=== PATIENT | male | born 1940 | race Caucasian/White ===

== ENCOUNTER 2018-03-04 01:08 | Outpatient (CLI) | payer OTHER, SELFPAY ==
[2018-03-04 10:59] LABS: CREATININE 1.14 mg/dL (0.70-1.30)
[2018-03-04 11:02] LABS: Hemoglobin A1C 5.8 % (4.5-6.2)
== END 2018-03-04 01:28 ==
PROVIDERS: PCP Family Medicine; Visit Provider Family Medicine
DX: I10 Essential (primary) hypertension (principal); E74.39 Other disorders of intestinal carbohydrate absorption
CPT/HCPCS: 36415; 82565; 83036

== ENCOUNTER 2019-02-21 01:29 | Outpatient (CLI) | payer OTHER, SELFPAY ==
[2019-02-21 11:48] LABS: CREATININE 1.09 mg/dL (0.70-1.30); Glucose 122 mg/dL (70-100); Potassium 4.1 mmol/L (3.5-5.1)
== END 2019-02-21 01:49 ==
PROVIDERS: PCP Family Medicine; Visit Provider Family Medicine
DX: I10 Essential (primary) hypertension (principal); R73.9 Hyperglycemia, unspecified
CPT/HCPCS: 36415; 82947; 82565; 84132

== ENCOUNTER 2020-02-21 04:14 | Outpatient (CLI) | payer OTHER, SELFPAY ==
[2020-02-21 08:39] LABS: Hemoglobin A1C 5.7 % (<5.7)
[2020-02-21 09:18] LABS: CREATININE 1.01 mg/dL (0.70-1.30); Calculated LDL 105 mg/dL (<100); Cholesterol 178 mg/dL (<200); HDL Cholesterol 44 mg/dL (40-60); Potassium 4.1 mmol/L (3.5-5.1); Triglyceride 148 mg/dL (<150)
== END 2020-02-21 04:34 ==
PROVIDERS: PCP Family Medicine; Visit Provider Family Medicine
DX: E78.5 Hyperlipidemia, unspecified (principal); I10 Essential (primary) hypertension; R73.9 Hyperglycemia, unspecified
CPT/HCPCS: 36415; 80061; 82565; 83036; 84132

== ENCOUNTER 2021-04-28 02:11 | Outpatient (CLI) | payer MEDICARE, SELFPAY ==
[2021-04-28 11:44] LABS: Hemoglobin A1C 5.7 % (<5.7)
[2021-04-28 12:11] LABS: CREATININE 1.2 mg/dL (0.70-1.30); Estimated GFR 57.96 (mL/min/1.73m2); Potassium 4.1 mmol/L (3.5-5.1)
== END 2021-04-28 02:12 | disposition home or self-care (01) ==
LOC: LOS 02:11
PROVIDERS: PCP Family Medicine; Visit Provider Family Medicine
DX: I10 Essential (primary) hypertension (principal); R73.9 Hyperglycemia, unspecified
CPT/HCPCS: 36415; 82565; 83036; 84132

== ENCOUNTER 2021-12-02 11:13 | Outpatient (REF) | payer MEDICARE, SELFPAY ==
--- NOTE | 2021-12-02 14:55 | SKI_PTH ---
PATIENT: Frank Schulz LOC: [facility] U#:[id number] AGE/SX: 81/M ROOM: RE12/02/[address]: Kb Greene MD : 1940 BED: DIS: 12/02/2021 SPEC #: [id number] RECD: 12/03/21 12:35 STATUS: FIFI REQ #: [id number] SAEID: 12/02/21 14:[address]: Kb Greene DEPT: Surgical Specimen RECD BY: Yoko Olivares Tissues: 1 - SKIN BIOPSY(SHAVE/PUNCH) Procedures: SKIN LEVEL 4 Comments: [id number]
== END 2021-12-02 11:14 | disposition home or self-care (01) ==
LOC: LBN 11:13
PROVIDERS: PCP Family Medicine; Visit Provider Family Medicine
DX: D04.21 Carcinoma in situ of skin of right ear and external auricular canal (principal)
CPT/HCPCS: 88305

== ENCOUNTER 2022-05-20 03:11 | Outpatient (CLI) | payer MEDICARE, SELFPAY ==
[2022-05-20 12:43] LABS: CREATININE 1.3 mg/dL (0.70-1.30); Estimated GFR 54.51 (mL/min/1.73m2); Potassium 3.9 mmol/L (3.5-5.1)
== END 2022-05-20 03:12 | disposition home or self-care (01) ==
LOC: LOS 03:11
PROVIDERS: PCP Family Medicine; Visit Provider Family Medicine
DX: I10 Essential (primary) hypertension (principal)
CPT/HCPCS: 36415; 82565; 84132

== ENCOUNTER 2023-01-25 20:20 | Emergency (ER) | payer MEDICARE, SELFPAY ==
[2023-01-25 20:27] VITALS: BP 159/73; PULSE 97; RESP 20; TEMP 36.4; O2SAT 95
--- NOTE | 2023-01-25 20:30 | DI.CT_ITS ---
Exam(s) CT ABDOMEN PELVIS W EXAM: CT ABDOMEN PELVIS W CLINICAL HISTORY: hematuria,. TECHNIQUE: Imaging Protocol: Axial computed tomography images with coronal and sagittal reformatted images were created and reviewed CONTRAST MATERIAL: Intravenous: Omnipaque-350 100cc Oral: None COMPARISON: No exams were available for comparison FINDINGS: VISUALIZED LUNG BASES: No nodules nor pleural effusions evident. ABDOMEN: There is no ascites. LIVER: There are no focal hepatic lesions evident. No dilated intrahepatic ducts. GALLBLADDER/BILIARY: Gallbladder surgically absent. CBD is not dilated. PANCREAS: No evidence of pancreatic mass nor dilatation of the pancreatic duct. SPLEEN: Spleen is not enlarged. No obvious intrasplenic lesions. Splenic and portal veins are paten t. ADRENALS: There are no significant adrenal masses. KIDNEYS:There is a benign cyst in the inferior pole of the right kidney which measures 2 x 2 cm and d oes not require further imaging investigation. No solid renal masses. No calculi nor hydronephrosis .. ABDOMINAL AORTA: Abdominal aorta is not enlarged. LYMPH NODES:There is no retroperitoneal nor paraaortic adenopathy. ABDOMINAL WALL: No evidence of anterior abdominal hernia. GI: There is no evidence of bowel obstruction, free air, nor abscess. PELVIS: GI: No evidence of appendicitis.Sigmoid diverticulosis without evidence of obvious acute diverticulit is. LYMPH NODES: There is no intrapelvic nor inguinal adenopathy. REPRODUCTIVE: Prostate size upper normal for this age group. Seminal vesicles unremarkable. There i s the small 2 millimeter calcification in the mid posterior prostate which may be a calculus within t he prostatic urethra. URINARY BLADDER: There are no radiopaque calculi seen in the urinary bladder. A small bladder divert iculum is noted posteriorly, not containing calculi. OSSEOUS: No fractures and no significant osseous lesions. Multilevel chronic degenerative disc disease. No listhesis. IMPRESSION: 1. There is a small 2 mm calculus present in the prostate which may be a tiny calculus in the prostat ic urethra and may explain the hematuria. There are no calculi in the kidneys, ureters, nor within t he urinary bladder and there are no solid renal masses. There is a benign 2 cm cyst in the inferior pole of the right kidney. 2. There is a small diverticulum on the posterior wall the urinary bladder which measures 1.4 x 1.5 c m. This does not contain obvious mass nor radiopaque calculus. 3. Sigmoid diverticulosis. No obvious acute diverticulitis. 4. Gallbladder surgically absent. Biliary tree is not dilated. RADIATION DOSE DELIVERED: 1,073.41mGy.cm Total DLP DATA REPOSITORY: All CT scans at this facility are submitted to the National Radiology Data Registry (NRDR) Dose Index Registry (DIR) with the [employer] (ACR). RADIATION OPTIMIZATION: All CT scans at this facility use at least one of these dose optimization te chniques: automated exposure control; mA and/or kV adjustment per patient size (includes targeted exa ms where dose is matched to clinical indication); or iterative reconstruction.
--- NOTE | 2023-01-25 20:40 | W.ED.GENAD ---
Discharge Plan Disposition Patient Disposition: Home Condition: Stable Discharge Details Clinical Impression: Hematuria, Kidney stone Primary Care Provider: Kb Greene ED Provider: Denis Hillman [place] Meds and New Rx's Prescriptions: Continued pravastatin 40 mg tablet 40 mg PO QHS Qty: 90 3RF telmisartan-hydrochlorothiazid 80-12.5 mg tablet 1 tab PO DAILY Qty: 90 3RF ibuprofen 200 mg capsule 400 mg PO BID Rx Instructions: 400 mg AM - 200 mg PM multivitamin [Once Daily] 1 EACH tablet 1 ea PO DAILY glucosamine sulfate 500 MG capsule 2 cap PO DAILY calcium carbonate [Oyster Shell Calcium 500] 500 mg calcium (1,250 mg) tablet 600 mg PO DAILY Discharge Instructions Instructions: Kidney Stones (ED), Hematuria (ED) HPI General Date/Time Provider Initiated Documentation: 01/25/23 20:23. HPI Narrative: 82 year old male presents to the ED with c/o episode of hematuria after mowing the lawn, with some mild flank pain tonight. No fever/chills. No trauma. No abd pain. No n/v/d. Currently without any sx's. Related Data Home Medications Medication Instructions Recorded Confirmed glucosamine sulfate 500 mg capsule 2 cap PO DAILY 11/03/12 01/25/23 multivitamin (Once Daily tablet) 1 ea PO DAILY 11/03/12 01/25/23 calcium carbonate 500 mg calcium 600 mg PO DAILY 02/28/19 01/25/23 (1,250 mg) tablet (Oyster Shell Calcium 500) pravastatin 40 mg tablet 40 mg PO QHS #90 tab-caps 05/12/22 01/25/23 telmisartan 80 1 tab PO DAILY #90 tabs 05/12/22 01/25/23 mg-hydrochlorothiazide 12.5 mg tablet ibuprofen 200 mg capsule 400 mg PO BID 11/17/22 01/25/23 Previous Rx's Medication Instructions Recorded pravastatin 40 mg tablet 40 mg PO QHS #90 tab-caps 05/12/22 telmisartan 80 1 tab PO DAILY #90 tabs 05/12/22 mg-hydrochlorothiazide 12.5 mg tablet Allergies Allergy/AdvReac Type Severity Reaction Status Date / Time lisinopril AdvReac Unknown COUGH Verified 01/25/23 20:32 General Stated Complaint: Urinary BEAU: 3 Review of Systems Narrative: CONST: no fever or chills HEENT: no sore throat SKIN: no rashes PULM: no sob, no cough CARD: no cp, no palpitations ABD: no abd pain EXTR: no swelling NEURO: No focal weakness PFSH All Active Problems (Updated 01/25/23 @ 22:27 by Denis Hillman MD) Hematuria (Acute) Kidney stone (Chronic) Difficulty in walking (Acute) Other specified peripheral vascular diseases (Acute) Toe pain, right (Acute) Toe pain, left (Acute) Pain, foot (Acute) Localized edema (Acute) Nail dystrophy (Acute) Cutaneous horn (Acute) Eczema (Acute) Basal cell carcinoma of nose (Acute 05/09/12) Cholelithiasis (Acute 02/27/08) History of surgical removal of lesion (Acute) 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) Status post cholecystectomy (Acute) Status post inguinal hernia repair (Acute) Hypertension (Chronic) Tendinitis involving hip abductors (Acute 05/18/16) Rhinitis (Acute) Varicose veins of lower extremity (Acute) Proteinuria (Acute 11/07/12) yearly prot/creat ratio Polyp of colon (Acute 05/06/05) TUBULAR ADENOMAS 06/12-REPEAT 2008 1 adenoma rpt 201310/27/13; [facility] [place] 3 TUBULAR ADENOMAS Onychomycosis (Acute 11/11/12) Non-alcoholic fatty liver disease (Acute) on [place] 2006 LFTs normal 2011,2012 Increased BMI (Acute) Hyperlipidemia with target LDL less than 100 (Acute 05/20/12) Essential hypertension (Acute 05/15/13) Actinic keratoses (Acute 11/23/13) Surgical History Cholecystectomy (~2006) Repair of inguinal hernia LEFT Family History Mother , age 60.5 Essential hypertension Heart disease Hyperlipidemia Myocardial infarction Throat cancer Father , age 62.5 Essential hypertension Heart disease Hyperlipidemia Sister , age 63 COPD (chronic obstructive pulmonary disease) Sister Heart disease Sister COPD (chronic obstructive pulmonary disease) Sister Cancer Sister No problems noted. Brother , DROWN at age 29. Essential hypertension Hyperlipidemia Brother , age 72.5 Heart disease Cancer Brother No problems noted. Brother Heart disease Brother Heart disease Brother No problems noted. Maternal Grandfather , age 60 Throat cancer Paternal Grandfather , age 62 Stroke Cancer Maternal Grandmother , age 60 Stroke Paternal Grandmother No problems noted. Son Essential hypertension Heart disease Son No problems noted. Son No problems noted. Daughter , age 35 Substance abuse Daughter No problems noted. Daughter No problems noted. Social History (Updated 05/15/22 @ 18:25 by Deonna [place]) Smoking/Tobacco Use Status: Never Tobacco: How many years used: 5 Second Hand Exposure: No Smoking risk assessment performed?: Yes Alcohol Intake: former Drug use: Never Substance use type: does not use Household members: spouse Communication Needs: None Pets and animals: No Sexually active: No Do you think of yourself as: straight/heterosexual Current gender identity: male What is your relationship status?: How often do you talk on the phone with friends or family?: three or more times per week How often do you get together with friends or relatives?: three or more times per week How often do you attend hindu or yazdanism services?: decline to answer Do you belong to any clubs or organized social groups?: no Panel score (0-1 are the most socially isolated patients): 2 What type of physical activity do you participate in: walking and aerobic Duration: > 90 minutes/day Frequency: daily Mojgan/Yazidism: Anabaptist Special mojgan needs: No Seatbelt use: always Drive intox or ride w/intox special client bus driver: No Exam Narrative Exam Narrative: Const: well appearing, no acute distress HEENT: normocephalic, atraumatic; MMM Lungs: CTA, no wheezing or rales Heart: RRR Abd: soft, NT/ND Ext: well perfused Neuro: non-focal Skin: no rashes Course 82 yo male with gross hematuria, normal labs. UA with blood only. CT a/p showed ?small stone at level of urethra, otherwise pretty normal. Will dc home, encourage fluids, OTC meds for any discomfort and f/u with pcp. If worsening pain, difficulty or inability to urinate, or any other cocerns return to the ED. Vital Signs Vital signs: Vital Signs Temperature 36.4 C L 01/25/23 20:27 Pulse 97 H 01/25/23 20:27 Respiratory Rate 20 01/25/23 20:27 Blood Pressure 159/73 H 01/25/23 20:27 Pulse Oximetry 95 01/25/23 20:27 Temperature 36.4 C L 01/25/23 20:27 Pulse 97 H 01/25/23 20:27 Respiratory Rate 20 01/25/23 20:27 Respiratory Effort Normal 01/25/23 20:34 Blood Pressure 159/73 H 01/25/23 20:27 Blood Pressure Position Sitting 01/25/23 20:27 Pulse Oximetry 95 01/25/23 20:27 Oxygen Delivery Method Room Air 01/25/23 20:27 Oxygen Flow Rate 0 01/25/23 20:27 Pain Level 0 01/25/23 20:34
[2023-01-25] MEDS: Normal Saline 1,000 ML 1000 ML IV (20:45)
[2023-01-25 20:46] LABS: Abs Immature Grans 0.03 10^3/uL (0.0-0.06); Absolute Basophil Count 0.08 10^3/uL (0.0-0.2); Absolute Eosinophil Count 0.28 10^3/uL (0.0-0.7); Absolute Lymphocyte Count 1.59 10^3/uL (1.2-3.4); Absolute Monocyte Count 1.07 10^3/uL (0.1-0.8); Absolute Neutrophil Count 4.95 10^3/uL (1.2-6.7); Eosinophils % 3.5; HCT 43.9 % (40.0-50.0); HGB 15.2 g/dL (13.5-17.5); Immature Grans % 0.4; Lymphocytes % 19.9; MCH 32.3 pg (27.0-33.0); MCHC 34.6 % (32.0-36.0); MCV 93 fL (80-95); MPV 10.1 fL (8.0-11.0); Monocytes % 13.4; Neutrophils % 61.8; Platelet Count 174 10^3/uL (130-400); RBC 4.71 10^6/uL (4.36-5.78); RDW 12.3 % (11.8-14.1); RDW-SD 42.9 fL
[2023-01-25 21:01] LABS: ALT 41 U/L (16-63); AST 24 U/L (15-37); Albumin 3.7 g/dL (3.4-5.0); Alkaline Phosphatase 68 U/L (46-116); Anion Gap 8.5 mmol/L (3-11); BUN 24 mg/dL (7-18); Bilirubin, Total 0.6 mg/dL (0.2-1.0); CO2 27.5 mmol/L (21.0-32.0); CREATININE 1.3 mg/dL (0.70-1.30); Chloride 104 mmol/L (98-107); Estimated GFR 54.51 (mL/min/1.73m2); Glucose 129 mg/dL (74-106); Potassium 3.8 mmol/L (3.5-5.1); Sodium 140 mmol/L (136-145); Total Protein 7.1 g/dL (6.4-8.2)
[2023-01-25] MEDS: Normal Saline Flush 10 ML SYR IVP (21:14)
[2023-01-25] MEDS: Normal Saline - Diluent 50 ML VIAL IJ (21:15)
[2023-01-25] MEDS: Omnipaque 350 MG/ML 100 ML BTL IJ (21:15)
[2023-01-25 21:51] LABS: Bilirubin Negative (Negative); Blood Large (Negative); Clarity Turbid (Clear); Glucose Negative (Negative); Ketones Negative (Negative); Leukocyte Esterase Negative (Negative); Nitrite Negative (Negative); Specific Gravity 1.015 (1.005-1.025); Urobilinogen 0.2 mg/dL (Up to 0.2)
--- NOTE | 2023-01-25 21:55 | DI.VRAD_ITS ---
PROCEDURE INFORMATION: Exam: CT Abdomen And Pelvis With Contrast Exam date and time: 01/25/2023 9:15 PM Age: 82 years old Clinical indication: Other: Hematuria TECHNIQUE: Imaging protocol: Computed tomography of the abdomen and pelvis with contrast. Radiation optimization: All CT scans at this facility use at least one of these dose optimization techniques: automated exposure control; mA and/or kV adjustment per patient size (includes targeted exams where dose is matched to clinical indication); or iterative reconstruction. Contrast material: OMNI 350; Contrast volume: 100 ml; Contrast route: INTRAVENOUS (IV); COMPARISON: CR LEFT HIP COMPLETE AP PELVIS 04/07/2016 11:11 AM FINDINGS: Lungs: There is minimal bibasilar atelectasis. Pleural spaces: There is no evidence of pneumothorax. There are no pleural effusions present. Heart: There is calcification of the cardiac aortic valve annulus. The cardiac structures are normal. Coronary arteries: There is mild atherosclerotic calcification of the coronary arteries. Diaphragm: A small hiatal hernia is present. Liver: There is a diffuse decrease in hepatic parenchymal density, consistent with mild fatty infiltration. There are no focal liver lesions present. Gallbladder and bile ducts: There has been a cholecystectomy. Pancreas: There is moderate pancreatic atrophy and fatty replacement. Spleen: The spleen is normal. Adrenal glands: Normal. No mass. Kidneys and ureters: 2 cm simple appearing cyst inferior pole right kidney. No follow-up indicated. No definitive ureteral calculi identified. Kidneys are otherwise normal. Stomach and bowel: There is moderate increased colonic fecal content. The colon is mildly distended. These findings suggest a moderate degree of constipation. Clinical correlation recommended. Mild diverticulosis is present in the sigmoid and descending colon. There is no evidence of diverticulitis. There is no evidence of intestinal obstruction. Appendix: A normal appendix is identified. There is no evidence of distention or periappendiceal inflammation to suggest appendicitis. Intraperitoneal space: There is no free intraperitoneal air. There is no evidence of free intraperitoneal or pelvic fluid. Vasculature: Unremarkable. No abdominal aortic aneurysm. Lymph nodes: There is no evidence of lymphadenopathy. Urinary bladder: The bladder is normal. Reproductive: The prostate gland demonstrates calcification and mild nonspecific enlargement. The seminal vesicles are normal. There is a 1-2 mm diameter calculus present at the mid posterior prostate which may represent a tiny urethral calculus in the process of being passed. Bones/joints: Severe degenerative changes of the lumbosacral spine present. The thoracolumbar spine demonstrates severe the degenerative changes at multiple levels. Soft tissues: There are nonobstructing bilateral inguinal hernias containing fat and possibly a small amount of mesentery. There is mild whole body soft tissue edema present, consistent with mild anasarca. IMPRESSION: 1. There is a 1-2 mm diameter calculus present at the mid posterior prostate which may represent a tiny urethral calculus in the process of being passed. 2. Constipation. 3. Degenerative changes the lumbosacral and thoracolumbar spine. Dictated and Authenticated by: Jay Jay Lazaro MD. Ordering:JANAE Barrios MD
[2023-01-25 21:56] LABS: Bacteria Rare HPF (Negative); C & S Indicated? No; Casts Negative LPF (Negative); Crystals Negative HPF (Negative); Epithelial Cells Rare HPF (Negative); Mucus Negative (Negative); RBC >50 HPF (0-2); WBC 0-2 HPF (0-5)
[2023-01-25 22:02] VITALS: BP 144/74; PULSE 80; RESP 14; O2SAT 94
[2023-01-25 22:55] VITALS: BP 140/72; PULSE 80; RESP 14; O2SAT 95
== END 2023-01-25 22:58 | disposition home or self-care (01) ==
PROVIDERS: Emergency Provider Emergency Medicine; PCP Family Medicine
DX: R31.9 Hematuria, unspecified (principal); N21.1 Calculus in urethra; K57.30 Diverticulosis of large intestine without perforation or abscess without bleeding
CPT/HCPCS: 36415; 80053; 96360; 99285; 74177; 81003; 81015; 85025; 99284; J3490

== ENCOUNTER → 2023-01-28 09:50 | Outpatient (BNVA) | payer MEDICARE, SELFPAY | PROVIDERS: PCP Family Medicine; Referring Provider Family Medicine; Visit Provider Urology | DX: R31.9 Hematuria, unspecified (principal); R30.9 Painful micturition, unspecified; I10 Essential (primary) hypertension | CPT/HCPCS: 99215 ==

== ENCOUNTER → 2023-02-09 12:49 | Outpatient (BNVA) | payer MEDICARE, SELFPAY | PROVIDERS: PCP Family Medicine; Referring Provider Family Medicine; Visit Provider Urology | DX: N35.912 Unspecified bulbous urethral stricture, male (principal); N35.919 Unspecified urethral stricture, male, unspecified site | CPT/HCPCS: 52000 ==

== ENCOUNTER → 2024-05-10 08:18 | Outpatient (BNVA) | payer MEDICARE, SELFPAY | PROVIDERS: PCP Family Medicine; Referring Provider Family Medicine; Visit Provider Podiatrist | DX: L60.3 Nail dystrophy (principal); R60.0 Localized edema; I83.90 Asymptomatic varicose veins of unspecified lower extremity; I73.89 Other specified peripheral vascular diseases; B35.1 Tinea unguium; G62.9 Polyneuropathy, unspecified | CPT/HCPCS: 11721 ==

== ENCOUNTER 2024-07-04 11:01 | Outpatient (CLI) | payer MEDICARE, SELFPAY ==
[2024-07-04 12:27] LABS: CREATININE 1.7 mg/dL (0.70-1.30); Estimated GFR 39.02 (mL/min/1.73m2); Potassium 4.3 mmol/L (3.5-5.1)
[2024-07-04 16:48] LABS: Lab Add On Test DONE
[2024-07-04 17:02] LABS: BUN 43 mg/dL (7-18)
== END 2024-07-04 11:02 | disposition home or self-care (01) ==
LOC: LOS 11:01
PROVIDERS: PCP Family Medicine; Visit Provider Family Medicine
DX: I10 Essential (primary) hypertension (principal); M25.561 Pain in right knee; R63.8 Other symptoms and signs concerning food and fluid intake
CPT/HCPCS: 36415; 84520; 82565; 84132

== ENCOUNTER 2024-07-06 03:01 | Outpatient (CLI) | payer MEDICARE, SELFPAY ==
--- NOTE | 2024-07-06 13:37 | DI.RAD_ITS ---
Exam(s) XR KNEE RT 3V AP,LAT,ANTON EXAM: XR KNEE RT 3V AP,LAT,ANTON CLINICAL HISTORY: progressive rt knee pain,m25.561. TECHNIQUE: 2D digital imaging was performed of the right knee. Four views obtained. AP, lateral and PA tunnel views were obtained. COMPARISON: CR RIGHT KNEE COMPLETE from 10/17/2008 FINDINGS: BONES: No acute fracture is present. No bony destructive lesion is seen. JOINTS: There is marked narrowing of the lateral femoral tibial joint with [id number]. There osteo phytes involving all 3 joint compartments. There does appear to be a small joint effusion. SOFT TISSUE: Atherosclerotic calcifications are present. IMPRESSION: Marked osteoarthritis of the right knee. There has been significant progression of disease compared to the prior examination. DATA REPOSITORY: RADIATION DOSE DELIVERED:
== END 2024-07-06 03:21 ==
LOC: DI 03:01
PROVIDERS: PCP Family Medicine; Visit Provider Family Medicine
DX: M17.11 Unilateral primary osteoarthritis, right knee (principal)
CPT/HCPCS: 73562

== ENCOUNTER → 2024-07-24 09:20 | Outpatient (BNVA) | payer MEDICARE, SELFPAY | PROVIDERS: PCP Family Medicine; Referring Provider Family Medicine; Visit Provider Podiatrist | DX: L60.3 Nail dystrophy (principal); I83.93 Asymptomatic varicose veins of bilateral lower extremities; R60.0 Localized edema; I73.89 Other specified peripheral vascular diseases; B35.1 Tinea unguium; G62.9 Polyneuropathy, unspecified; L65.9 Nonscarring hair loss, unspecified; R20.8 Other disturbances of skin sensation; R23.8 Other skin changes; L60.8 Other nail disorders; L60.2 Onychogryphosis; L85.8 Other specified epidermal thickening | CPT/HCPCS: 11721 ==

== ENCOUNTER → 2024-08-11 10:16 | Outpatient (BNVA) | payer MEDICARE, SELFPAY | PROVIDERS: PCP Family Medicine; Referring Provider Family Medicine; Visit Provider Physician Assistant | DX: M17.11 Unilateral primary osteoarthritis, right knee (principal); I10 Essential (primary) hypertension; G47.33 Obstructive sleep apnea (adult) (pediatric) | CPT/HCPCS: 20610; 99213; J1010 ==

== ENCOUNTER → 2024-10-02 10:23 | Outpatient (BNVA) | payer MEDICARE, SELFPAY | PROVIDERS: PCP Family Medicine; Referring Provider Family Medicine; Visit Provider Podiatrist | DX: L60.3 Nail dystrophy (principal); B35.1 Tinea unguium; I73.89 Other specified peripheral vascular diseases; R60.0 Localized edema; I83.90 Asymptomatic varicose veins of unspecified lower extremity; G62.9 Polyneuropathy, unspecified; R09.89 Other specified symptoms and signs involving the circulatory and respiratory systems; L65.9 Nonscarring hair loss, unspecified; R20.8 Other disturbances of skin sensation; R23.8 Other skin changes; L60.8 Other nail disorders; L60.2 Onychogryphosis; L85.8 Other specified epidermal thickening | CPT/HCPCS: 11721 ==

== ENCOUNTER → 2024-12-11 10:50 | Outpatient (BNVA) | payer MEDICARE, SELFPAY | PROVIDERS: PCP Family Medicine; Referring Provider Family Medicine; Visit Provider Podiatrist | DX: I83.93 Asymptomatic varicose veins of bilateral lower extremities (principal); L60.3 Nail dystrophy; R60.0 Localized edema; I73.89 Other specified peripheral vascular diseases; B35.1 Tinea unguium; G62.9 Polyneuropathy, unspecified; R09.89 Other specified symptoms and signs involving the circulatory and respiratory systems; L65.9 Nonscarring hair loss, unspecified; R20.8 Other disturbances of skin sensation; R23.8 Other skin changes; L60.8 Other nail disorders; B35.3 Tinea pedis; L60.2 Onychogryphosis; L85.8 Other specified epidermal thickening | CPT/HCPCS: 11721 ==

== ENCOUNTER → 2025-02-20 10:21 | Outpatient (BNVA) | payer MEDICARE, SELFPAY | PROVIDERS: PCP Family Medicine; Referring Provider Family Medicine; Visit Provider Podiatrist | DX: L60.3 Nail dystrophy (principal); B35.1 Tinea unguium; I73.89 Other specified peripheral vascular diseases; I83.90 Asymptomatic varicose veins of unspecified lower extremity; R60.0 Localized edema; G62.9 Polyneuropathy, unspecified; R09.89 Other specified symptoms and signs involving the circulatory and respiratory systems; L65.9 Nonscarring hair loss, unspecified; R20.8 Other disturbances of skin sensation; R23.4 Changes in skin texture; L60.8 Other nail disorders; I83.93 Asymptomatic varicose veins of bilateral lower extremities; L60.2 Onychogryphosis; R23.8 Other skin changes; L85.8 Other specified epidermal thickening | CPT/HCPCS: 11721 ==

== ENCOUNTER 2025-03-16 09:02 | Day surgery (SDC) | payer MEDICARE, SELFPAY ==
--- NOTE | 2025-03-16 09:14 | W.ANESPRE ---
General Info Date of Service Date Performed: 03/16/25 Height: 5 ft 9 in Weight: 99.507 kg Body Mass Index (BMI): 32.3 Surgical Procedure: Operation Date: 03/16/25 10:40 Proposed Procedure Side Surgeon p Cataract Extraction with IOL Implant Left Jhon Olivera MD Meds Allergies and Home Medications Allergies Allergy/AdvReac Type Severity Reaction Status Date / Time lisinopril AdvReac Unknown COUGH Verified 03/16/25 09:22 Home Medication ?Medication ?Instructions ?Recorded glucosamine sulfate 500 mg capsule 2 cap PO DAILY 11/03/12 multivitamin (Once Daily tablet) 1 ea PO DAILY 11/03/12 calcium carbonate (Oyster Shell 600 mg PO DAILY 02/28/19 Calcium 500) ibuprofen 200 mg capsule 400 mg PO BID 11/17/22 ketoconazole 2 % topical cream 1 applic topical DAILY #60 grams 05/10/24 Held on 03/14/25. Instructions: Prescription Finished fluorouracil 5 % topical cream applic topical 07/04/24 Held on 03/14/25. Instructions: Pt Stopped/Never Started amlodipine 5 mg tablet 5 mg PO DAILY #90 tabs 03/08/25 pravastatin 40 mg tablet 40 mg PO QHS #90 tab-caps 03/08/25 telmisartan 80 1 tab PO DAILY #90 tabs 03/08/25 mg-hydrochlorothiazide 12.5 mg tablet Current Visit Medications: Current Medications Generic Name Dose Route Start Last Admin Trade Name Freq PRN Reason Stop Dose Admin Acetaminophen 1,000 mg 03/16/25 06:00 Acetaminophen 500 Mg Tab PO 04/15/25 05:59 Q4H PRN PRN Balanced Salt Solution 500 ml 03/16/25 06:00 Balanced Salt Soln.-Plus 500 Ml Bag OP 04/15/25 05:59 DIRECTED LASHAWN Miscellaneous Medication 0 ml 03/16/25 06:00 Prednisolone 1%, Moxifloxacin 0.5%, Bromfenac 0.09% 5.6ml Btl OS 04/15/25 05:59 DIRECTED LASHAWN Miscellaneous Medication 0 ml 03/16/25 06:00 Tropicam./Phenyleph. (1/2.5%) 5 Ml Btl OS 04/15/25 05:59 DIRECTED LASHAWN Tetracaine HCl 0 ml 03/16/25 06:00 Tetracaine 0.5% 4 Ml Btl OS 04/15/25 05:59 DIRECTED LASHAWN [facility] Active Problems Active Problems: Problem Status Onset Code Cortical age-related cataract, left eye Acute H25.012 Nuclear age-related cataract, left eye Acute H25.12 Systolic murmur Acute R01.1 Arthritis of right knee Acute M17.11 Pain, joint, knee, right Acute M25.561 Hyperglycemia Acute R73.9 Peripheral neuropathy Acute G62.9 Bilateral sensorineural hearing loss Acute H90.3 Sleep apnea Acute G47.30 Urethral stricture Acute N35.919 Difficulty in walking Acute R26.2 Other specified peripheral vascular diseases Acute I73.89 Toe pain, right Acute M79.674 Toe pain, left Acute M79.675 Pain, foot Acute M79.673 Localized edema Acute R60.0 Nail dystrophy Acute L60.3 Cutaneous horn Acute L85.8 Eczema Acute L30.9 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 C44.311 Cholelithiasis Acute 08 K80.20 History of surgical removal of lesion Acute Z98.890, Z87.2 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 Status post cholecystectomy Acute Z90.49 Status post inguinal hernia repair Acute Z98.890, Z87.19 Hypertension Chronic I10 Tendinitis involving hip abductors Acute 05/18/16 M76.899 Rhinitis Acute J31.0 Varicose veins of lower extremity Acute I83.90 Proteinuria Acute 11/07/12 R80.9 Polyp of colon Acute 05/06/05 K63.5 Onychomycosis Acute 11/11/12 B35.1 Non-alcoholic fatty liver disease Acute K76.0 Increased BMI Acute R63.8 Hyperlipidemia with target LDL less than 100 Acute 05/20/12 E78.5 Essential hypertension Acute 05/15/13 I10 Actinic keratoses Acute 11/23/13 L57.0 Surgical History Surgical History History of external ear surgery Excision of skin cancer right ear. History of tonsillectomy Repair of inguinal hernia LEFT Cholecystectomy (~2006) Tobacco Smoking/Tobacco Use Status: Former Tobacco Use Passive smoking exposure: Yes Second hand exposure: Yes Alcohol Alcohol Intake: former Substance Use Substance use: Never Substance use type: does not use Vital Signs and Lab Results Vital Signs Most Recent Vital Signs in EMR: Temp Pulse Resp BP Pulse Ox 36.3 C L 84 16 142/82 H 95 03/16/25 09:24 03/16/25 09:24 03/16/25 09:24 03/16/25 09:24 03/16/25 09:24 Imaging and Studies Imaging and Studies Study information below may be from another EMR and interpreted by another provider. Please see original notes in EMR for more complete details. EKG Summary: Reviewed Anesthesia Assessment and Plan Anesthesia History Personal History: No History of Anesthesia Complications Family History: No Family History of Anesthesia Complications Exercise Tolerance Exercise Tolerance: Metabolic Equivalents>4 Pertinent Negatives Pertinent Negatives: No Symptoms of GERD and No History of CVA/TIA Cardiac & Pulmonary Exam Cardiac Exam: Heart Murmur Present (Identified in October of this year by PCP, new to patient. No ECHO performed. ) Pulmonary Exam: Clear Bilateral Breath Sounds Implantable Cardiac Device Does patient have a Pacemaker or an ICD?: No Airway Exam Known Difficult Airway: No Mallampati Class: 2 Mouth Opening: Normal (> 3cm) Thyromental Distance: Greater than 3 cm Neck Range of Motion: Full ROM Neck Circumference: Normal Teeth Condition: Normal Dentition ASA Classification ASA Score: ASA 3 Emergency Case?: No NPO Status NPO Status: NPO Clears >2 hours, Solids >8 hours Anesthesia Plan Resuscitation Status: Full Code Anesthesia Technique: MAC Anesthesia Airway Planned: Natural Airway Monitors Used: Standard Monitors Preoperative Comments:: Patient with new systolic murmur identified in October of this year. No ECHO performed, uncertain on severity or etiology of murmur. Patient can proceed with a local today, however if he wants elective surgery with sedation we will need a more complete workup.
[2025-03-16] MEDS: Tropicam./Phenyleph. (1/2.5%) 5 ML BTL ×2 (09:21→09:31)
[2025-03-16 09:24] VITALS: BP 142/82; PULSE 84; RESP 16; TEMP 36.3; O2SAT 95
[2025-03-16] MEDS: Tropicam./Phenyleph. (1/2.5%) 5 ML BTL OS (09:38)
[2025-03-16 09:55] VITALS: BMI 32.3
[2025-03-16] MEDS: Prednisolone 1%, Moxifloxacin 0.5%, Bromfenac 0.09% 5.6ML BTL 5.6 ML (10:36)
[2025-03-16] MEDS: Lidocaine 1% Pres-Free 5 ML VIAL (10:38)
[2025-03-16] MEDS: Tetracaine 0.5% 4 ML BTL (10:38)
[2025-03-16] MEDS: Duovisc Viscoelastic System EACH 1 EACH (10:38)
[2025-03-16] MEDS: Phenylephrine/Lidocaine (15/10) MG/ML 1 ML VIAL (10:39)
[2025-03-16] MEDS: Moxifloxacin-PF 1 MG/ML VIAL (10:39)
[2025-03-16] MEDS: Povidone-Iodine Ophth 30 ML BTL (10:40)
[2025-03-16] MEDS: Balanced Salt Soln.-PLUS 500 ML BAG OP (10:40)
[2025-03-16] MEDS: Trypan Blue 0.06% 0.5 ML SYR (10:40)
[2025-03-16 10:56] VITALS: BP 145/73; PULSE 69; RESP 16; TEMP 36.4; O2SAT 96
--- NOTE | 2025-03-16 10:57 | W.PM.DSUDISC ---
Date of service: 03/16/25 Discharge Plan Disposition Patient Disposition: Home Discharge Details Attending Provider: Jhon Olivera Primary Care Provider: Kb Greene Home Meds and New Rx's Prescriptions: No Action ibuprofen 200 mg capsule 400 mg PO BID Rx Instructions: 400 mg AM - 200 mg PM ketoconazole 2 % cream 1 applic topical DAILY Qty: 60 5RF Rx Instructions: Apply 3 grams to all toenails, bottoms of feet, and between toes daily. (apply at a separate time from other creams). pravastatin 40 mg tablet 40 mg PO QHS Qty: 90 3RF telmisartan-hydrochlorothiazid 80-12.5 mg tablet 1 tab PO DAILY Qty: 90 3RF amlodipine 5 mg tablet 5 mg PO DAILY Qty: 90 3RF fluorouracil 5 % cream topical multivitamin [Once Daily] 1 EACH tablet 1 ea PO DAILY glucosamine sulfate 500 MG capsule 2 cap PO DAILY calcium carbonate [Oyster Shell Calcium 500] 500 mg calcium (1,250 mg) tablet 600 mg PO DAILY Discharge Instructions Stand Alone Forms: [facility] Post-Op Cataract, Guero Yo ([facility]) Discharge Orders Discharge Orders: Discharge Order (Routine); Ordered 03/16/25 Ordered By: Jhon Olivera DS: Diagnosis Discharge Diagnosis (1) Cortical age-related cataract, left eye: Status: Resolved (2) Nuclear age-related cataract, left eye: Status: Resolved
--- NOTE | 2025-03-16 10:58 | ROE_ITS ---
Operative Note Operative Note PRE-OP DIAGNOSIS: Nuclear/cortical cataract, left eye POST-OP DIAGNOSIS: same PROCEDURE: Cataract extraction using phacoemulsification with intraocular lens implant, left eye SURGEON: Jhon Olivera ANESTHESIA TYPE: Local By Surgeon and MAC Refer to Anesthesia Record PATHOLOGY: none sent COMPLICATIONS: None Patient was transported to: same day Patient's condition: stable Implants: Kevin Clareon [id number] Indications: Progressive decreased vision due to cataract, left eye Procedure Description: CATARACT SURGERY OPERATIVE REPORT PREOPERATIVE DIAGNOSIS: Nuclear/cortical cataract, left eye POSTOPERATIVE DIAGNOSIS: Same OPERATION: Cataract extraction using phacoemulsification with posterior chamber intraocular lens implant, left eye. IOL: IOL Stripper Shovel Operator/Model: Kevin Clareon [id number] IOL Power: + 20.5 diopters IOL Serial Number: [id number] Optic Diameter: 6.0mm Haptic/Overall Diameter: 13.0mm PHACO INFO: Kevin Centurion Vision System with OZil and Active Fluidics Cumulative Dispersed Energy (CDE): 5.12 seconds SURGEON: Jhon Olivera MD, VICTOR HUGO ANESTHESIA: Monitored Anesthesia Care (MAC), with local sub-tenon's anesthetic infiltration COMPLICATIONS: None SPECIMENS: None INDICATIONS FOR PROCEDURE: The patient is an 85-year-old male with history of diminished visual acuity in his left eye secondary to the development of nuclear/cortical cataract. He is significantly symptomatic that he desires cataract surgery and attempt to improve and maximize his vision. The option of cataract surgery was offered to the patient and he wished to proceed. See office notes for detailed information. PROCEDURE: The correct surgical eye was identified and marked as the left eye and the pupil was dilated in the preoperative area using mydriatics and cycloplegics. The dilated pupil size was 7.0 mm. The patient elected to proceed without oral sedation. The patient was brought to the operating room where cardiopulmonary monitoring was instituted and surgical time-out was performed, confirming the correct operative eye and IOL power. Topical anesthesia was administered and ophthalmic povidone-iodine 5% was instilled into the conjunctival fornices. The usha-ocular area was prepped with Betadine 10% solution and draped in the usual sterile fashion for intraocular surgery, including an aperture drape. A Tegaderm transparent film dressing was cut in half and used to cover the lashes and lid margins. Care was taken to sequester the lashes and lid margins under the Tegaderm dressing. A lid speculum was placed between the lids of the operative eye and the Kevin LuxOR Revalia operating microscope was maneuvered into position. Gerardo scissors were then used to make a conjunctival buttonhole approximately 6mm posterior to the limbus in the inferonasal quadrant. Blunt dissection was carried out to expose bare sclera, and a blunt-tipped sub-tenon?s anesthesia cannula was introduced and passed posteriorly along the globe where non- preserved plain lidocaine was injected into posterior sub-Tenon?s space. A sideport knife was used to make a paracentesis port. VisionBlue was injected into the anterior chamber and allowed to sit for 30 seconds. Intraocular phenylephrine/lidocaine was injected into the anterior chamber. Th e anterior chamber was then filled with viscoelastic. A keratome knife was used construct a two-plane clear corneal tunnel extending 2.0mm into clear cornea. A flap was raised on the anterior capsule and capsulorhexis forceps were used to complete a continuous curvilinear capsulorhexis of 5.5 mm. Balanced salt solution was then used to perform cortical cleaving hydrodissection and nuclear hydrodelineation until the lens could be freely rotated within the capsular bag. The lens nucleus was then disassembled and removed within the capsular bag and iris plane using phacoemulsification. Resid ual cortical material was removed using the irrigation/aspiration handpiece. The posterior capsule was carefully polished to remove as much residual lens epithelial cells as safely possible. The capsular bag was then inflated and the anterior chamber deepened with viscoelastic. The lens implant described above was inserted into the capsular bag using the Kevin Autonome Injector. A Kuglen hook was used to dial the IOL into position. Residual viscoelastic was then removed first from posterior to the IOL, then from the anterior chamber using the I/A handpiece. The lens implant was noted to center nicely within the capsular bag. The incisions were stromally hydrated, and the anterior chamber was reformed using BSS. Then 0.5cc of moxifloxacin 1.0mg/ml were injected into the capsular bag and anterior chamber. The incisions were checked with a Weck spear and found to be secure. Several drops of ophthalmic povidone-iodine 5% were then applied to the eye followed by two drops of combination steroid/NSAID/antibiotic solution. The drapes were removed and a clear plastic protective eye shield was placed over the eye. The patient was then returned to Same Day Surgery in stable condition. Date of Procedure: 03/16/25
--- NOTE | 2025-03-16 11:55 | W.ANESPOSTOP ---
Postoperative Evaluation Date, Time and Location Date Performed: 03/16/25 Time Performed: 10:57 Patient Location: Day Surgery Unit Vital Signs Most Recent Imported Vital Signs: Most Recent Vital Signs Temp Pulse Resp BP Pulse Ox 36.4 C L 69 16 145/73 H 96 03/16/25 10:56 03/16/25 10:56 03/16/25 10:56 03/16/25 10:56 03/16/25 10:56 Pain Score Most Recent Pain Score: Most Recent Pain Score Pain Level 0 03/16/25 10:56 Assessment Mental Status: Awake (Alert & Oriented to Patient Baseline) Airway and Respiratory Function: Patent airway with normal (patient baseline) respiratory exam Cardiovascular Function: Hemodynamically Stable Hydration Status: Adequately Hydrated Nausea & Vomiting: No Nausea or Vomiting Pain: Pt. Denies Any Pain Peripheral Nerve Block: Other (Local by Dr. Olivera)
== END 2025-03-16 11:25 | disposition home or self-care (01) ==
PROVIDERS: PCP Family Medicine; Visit Provider Ophthalmology
PROC: (CPT 66984; principal; 2025-03-16 10:30)
DX: H25.012 Cortical age-related cataract, left eye (principal); H25.12 Age-related nuclear cataract, left eye
CPT/HCPCS: 66984; 00123; V2632; J2003

== ENCOUNTER 2025-03-30 09:03 | Day surgery (SDC) | payer MEDICARE, SELFPAY ==
[2025-03-30 09:22] VITALS: BP 137/71; PULSE 77; RESP 16; TEMP 36.5; O2SAT 94
[2025-03-30] MEDS: Tropicam./Phenyleph. (1/2.5%) 5 ML BTL OD ×3 (09:35→09:45)
--- NOTE | 2025-03-30 09:46 | W.ANESPRE ---
General Info Date of Service Date Performed: 03/30/25 Height: 5 ft 9 in Weight: 98.7 kg Body Mass Index (BMI): 32.1 Surgical Procedure: Operation Date: 03/30/25 10:55 Proposed Procedure Side Surgeon p Cataract Extraction with IOL Implant Right Jhon Olivera MD Meds Allergies and Home Medications Allergies Allergy/AdvReac Type Severity Reaction Status Date / Time lisinopril AdvReac Unknown COUGH Verified 03/30/25 09:31 Home Medication ?Medication ?Instructions ?Recorded glucosamine sulfate 500 mg capsule 2 cap PO DAILY 11/03/12 multivitamin (Once Daily tablet) 1 ea PO DAILY 11/03/12 calcium carbonate (Oyster Shell 600 mg PO DAILY 02/28/19 Calcium 500) ibuprofen 200 mg capsule 400 mg PO BID 11/17/22 ketoconazole 2 % topical cream 1 applic topical DAILY #60 grams 05/10/24 Held on 03/14/25. Instructions: Prescription Finished fluorouracil 5 % topical cream applic topical 07/04/24 Held on 03/14/25. Instructions: Pt Stopped/Never Started pravastatin 40 mg tablet 40 mg PO QHS #90 tab-caps 03/08/25 telmisartan 80 1 tab PO DAILY #90 tabs 03/08/25 mg-hydrochlorothiazide 12.5 mg tablet amlodipine 5 mg tablet 5 mg PO HS 03/28/25 Current Visit Medications: Current Medications Generic Name Dose Route Start Last Admin Trade Name Freq PRN Reason Stop Dose Admin Acetaminophen 1,000 mg 03/30/25 06:00 Acetaminophen 500 Mg Tab PO 04/29/25 05:59 Q4H PRN PRN Balanced Salt Solution 500 ml 03/30/25 06:00 Balanced Salt Soln.-Plus 500 Ml Bag OP 04/29/25 05:59 DIRECTED LASHAWN Miscellaneous Medication 0 ml 03/30/25 06:00 Prednisolone 1%, Moxifloxacin 0.5%, Bromfenac 0.09% 5.6ml Btl OD 04/29/25 05:59 DIRECTED LASHAWN Miscellaneous Medication 0 ml 03/30/25 06:00 03/30/25 09:45 Tropicam./Phenyleph. (1/2.5%) 5 Ml Btl OD 04/29/25 05:59 1 drp DIRECTED LASHAWN Administration Tetracaine HCl 0 ml 03/30/25 06:00 Tetracaine 0.5% 4 Ml Btl OD 04/29/25 05:59 DIRECTED [facility] Active Problems Active Problems: Problem Status Onset Code Cortical age-related cataract, right eye Acute H25.011 Nuclear age-related cataract, right eye Acute H25.11 Cortical age-related cataract, left eye Resolved H25.012 Nuclear age-related cataract, left eye Resolved H25.12 Systolic murmur Acute R01.1 Arthritis of right knee Acute M17.11 Pain, joint, knee, right Acute M25.561 Hyperglycemia Acute R73.9 Peripheral neuropathy Acute G62.9 Bilateral sensorineural hearing loss Acute H90.3 Sleep apnea Acute G47.30 Urethral stricture Acute N35.919 Difficulty in walking Acute R26.2 Other specified peripheral vascular diseases Acute I73.89 Toe pain, right Acute M79.674 Toe pain, left Acute M79.675 Pain, foot Acute M79.673 Localized edema Acute R60.0 Nail dystrophy Acute L60.3 Cutaneous horn Acute L85.8 Eczema Acute L30.9 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 C44.311 Cholelithiasis Acute 02/27/08 K80.20 History of surgical removal of lesion Acute Z98.890, Z87.2 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 Status post cholecystectomy Acute Z90.49 Status post inguinal hernia repair Acute Z98.890, Z87.19 Hypertension Chronic I10 Tendinitis involving hip abductors Acute 05/18/16 M76.899 Rhinitis Acute J31.0 Varicose veins of lower extremity Acute I83.90 Proteinuria Acute 11/07/12 R80.9 Polyp of colon Acute 05/06/05 K63.5 Onychomycosis Acute 11/11/12 B35.1 Non-alcoholic fatty liver disease Acute K76.0 Increased BMI Acute R63.8 Hyperlipidemia with target LDL less than 100 Acute 05/20/12 E78.5 Essential hypertension Acute 05/15/13 I10 Actinic keratoses Acute 11/23/13 L57.0 Surgical History Surgical History History of external ear surgery Excision of skin cancer right ear. History of tonsillectomy Repair of inguinal hernia LEFT Cholecystectomy (~2006) Tobacco Smoking/Tobacco Use Status: Former Tobacco Use Passive smoking exposure: Yes Second hand exposure: Yes Alcohol Alcohol Intake: former Substance Use Substance use: Never Substance use type: does not use Vital Signs and Lab Results Vital Signs Most Recent Vital Signs in EMR: Most Recent Vital Signs Temp Pulse Resp BP Pulse Ox 36.5 C 77 16 137/71 94 03/30/25 09:22 03/30/25 09:22 03/30/25 09:22 03/30/25 09:22 03/30/25 09:22 Imaging and Studies Imaging and Studies Study information below may be from another EMR and interpreted by another provider. Please see original notes in EMR for more complete details. EKG Summary: Reviewed Anesthesia Assessment and Plan Anesthesia History Personal History: No History of Anesthesia Complications Family History: No Family History of Anesthesia Complications Exercise Tolerance Exercise Tolerance: Metabolic Equivalents>4 Pertinent Negatives Pertinent Negatives: No Symptoms of GERD Cardiac & Pulmonary Exam Cardiac Exam: Normal S1/S2 Heart Sounds Pulmonary Exam: Clear Bilateral Breath Sounds Implantable Cardiac Device Does patient have a Pacemaker or an ICD?: No Airway Exam Known Difficult Airway: No Mallampati Class: 2 Mouth Opening: Normal (> 3cm) Thyromental Distance: Greater than 3 cm Neck Range of Motion: Full ROM Neck Circumference: Normal Teeth Condition: Normal Dentition ASA Classification ASA Score: ASA 3 Emergency Case?: No NPO Status NPO Status: NPO Clears >2 hours, Solids >8 hours Anesthesia Plan Resuscitation Status: Full Code Anesthesia Technique: MAC Anesthesia Airway Planned: Natural Airway Monitors Used: Standard Monitors
[2025-03-30 09:47] VITALS: BMI 32.1
[2025-03-30] MEDS: Tetracaine 0.5% 4 ML BTL OD (10:34)
[2025-03-30] MEDS: Lidocaine 1% Pres-Free 5 ML VIAL (10:40)
[2025-03-30] MEDS: Povidone-Iodine Ophth 30 ML BTL (10:44)
[2025-03-30] MEDS: Duovisc Viscoelastic System EACH 1 EACH (10:44)
[2025-03-30] MEDS: Trypan Blue 0.06% 0.5 ML SYR (10:45)
[2025-03-30] MEDS: Moxifloxacin-PF 1 MG/ML VIAL (10:46)
[2025-03-30] MEDS: Phenylephrine/Lidocaine (15/10) MG/ML 1 ML VIAL (10:46)
[2025-03-30] MEDS: Balanced Salt Soln.-PLUS 500 ML BAG OP (10:46)
[2025-03-30] MEDS: Prednisolone 1%, Moxifloxacin 0.5%, Bromfenac 0.09% 5.6ML BTL OD (10:47)
[2025-03-30 11:03] VITALS: BP 161/72; PULSE 67; RESP 16; TEMP 36.6; O2SAT 96
--- NOTE | 2025-03-30 11:04 | W.PM.DSUDISC ---
Date of service: 03/30/25 Discharge Plan Disposition Patient Disposition: Home Discharge Details Attending Provider: Jhon Olivera Primary Care Provider: Kb Greene Home Meds and New Rx's Prescriptions: No Action ibuprofen 200 mg capsule 400 mg PO BID Rx Instructions: 400 mg AM - 200 mg PM ketoconazole 2 % cream 1 applic topical DAILY Qty: 60 5RF Rx Instructions: Apply 3 grams to all toenails, bottoms of feet, and between toes daily. (apply at a separate time from other creams). pravastatin 40 mg tablet 40 mg PO QHS Qty: 90 3RF telmisartan-hydrochlorothiazid 80-12.5 mg tablet 1 tab PO DAILY Qty: 90 3RF fluorouracil 5 % cream topical multivitamin [Once Daily] 1 EACH tablet 1 ea PO DAILY glucosamine sulfate 500 MG capsule 2 cap PO DAILY calcium carbonate [Oyster Shell Calcium 500] 500 mg calcium (1,250 mg) tablet 600 mg PO DAILY amlodipine 5 mg tablet 5 mg PO HS Discharge Instructions Stand Alone Forms: [facility] Post-Op Cataract, Guero Yo ([facility]) Discharge Orders Discharge Orders: Discharge Order (Routine); Ordered 03/30/25 Ordered By: Jhon Olivera DS: Diagnosis Discharge Diagnosis (1) Cortical age-related cataract, right eye: Status: Resolved (2) Nuclear age-related cataract, right eye: Status: Resolved
--- NOTE | 2025-03-30 11:06 | W.PM.OP ---
Operative Note Operative Note PRE-OP DIAGNOSIS: Nuclear/cortical cataract, right eye POST-OP DIAGNOSIS: same PROCEDURE: Cataract extraction using phacoemulsification with intraocular lens implant, right eye SURGEON: Jhon Olivera ANESTHESIA TYPE: Local By Surgeon and MAC Refer to Anesthesia Record ESTIMATED BLOOD LOSS: 0 PATHOLOGY: none sent COMPLICATIONS: None Patient was transported to: same day Patient's condition: stable Implants: Kevin Clareon [id number] Indications: Progressive decreased vision due to cataract, right eye Procedure Description: CATARACT SURGERY OPERATIVE REPORT PREOPERATIVE DIAGNOSIS: Nuclear/cortical cataract, right eye POSTOPERATIVE DIAGNOSIS: Same OPERATION: Cataract extraction using phacoemulsification with posterior chamber intraocular lens implant, right eye. IOL: IOL Division Plant Engineer/Model: Kevin Clareon [id number] IOL Power: + 20.5 diopters IOL Serial Number: [id number] Optic Diameter: 6.0mm Haptic/Overall Diameter: 13.0mm PHACO INFO: Kevin Centurion Vision System with OZil and Active Fluidics Cumulative Dispersed Energy (CDE): 5.22 seconds SURGEON: Jhon Olivera MD, VICTOR HUGO ANESTHESIA: Monitored Anesthesia Care (MAC), with local sub-tenon's anesthetic infiltration COMPLICATIONS: None SPECIMENS: None INDICATIONS FOR PROCEDURE: The patient is an 85-year-old male with history of diminished visual acuity in his right eye secondary to the development of nuclear/cortical cataract. He is significantly symptomatic that he desires cataract surgery and attempt to improve and maximize his vision. He has already undergone cataract surgery in the left eye and is doing well postoperatively. He now presents for cataract surgery in the right eye. See office notes for detailed information. PROCEDURE: The correct surgical eye was identified and marked as the right eye and the pupil was dilated in the preoperative area using mydriatics and cycloplegics. The dilated pupil size was 6.0 mm. . The patient elected to proceed without oral sedation. The patient was brought to the operating room where cardiopulmonary monitoring was instituted and surgical time-out was performed, confirming the correct operative eye and IOL power. Topical anesthesia was administered and ophthalmic povidone-iodine 5% was instilled into the conjunctival fornices. The usha-ocular area was prepped with Betadine 10% solution and draped in the usual sterile fashion for intraocular surgery, including an aperture drape. A Tegaderm transparent film dressing was cut in half and used to cover the lashes and lid margins. Care was taken to sequester the lashes and lid margins under the Tegaderm dressing. A lid speculum was placed between the lids of the operative eye and the Kevin LuxOR Revalia operating microscope was maneuvered into position. Gerardo scissors were then used to make a conjunctival buttonhole approximately 6mm posterior to the limbus in the inferonasal quadrant. Blunt dissection was carried out to expose bare sclera, and a blunt-tipped sub-tenon?s anesthesia cannula was introduced and passed posteriorly along the globe where non-preserved plain lidocaine was injected into posterior sub-Tenon?s space. A sideport knife was used to make a paracentesis port. VisionBlue was injected into the anterior chamber and allowed to sit for 30 seconds. Intraocular phenylephrine/lidocaine was injected into the anterior chamber. The anterior chamber was then filled with viscoelastic. A keratome knife was used to construct a two--plane clear corneal tunnel extending 2.0mm into clear cornea. A flap was raised on the anterior capsule and capsulorhexis forceps were used to complete a continuous curvilinear capsulorhexis of 5.0 mm. Balanced salt solution was then used to perform cortical cleaving hydrodissection and nuclear hydrodelineation until the lens could be freely rotated within the capsular bag. The lens nucleus was then disassembled and removed within the capsular bag and iris plane using phacoemulsification. Residual cortical material was removed using the I/A handpiece. The posterior capsule was carefully polished to remove as much residual lens epithelial cells as safely possible. The capsular bag was then inflated and the anterior chamber deepened with cohesive viscoelastic. The lens implant described above was inserted into the capsular bag using the Kevin Autonome Injector. A Kuglen hook was used to dial the IOL into position. Residual viscoelastic was then removed first from posterior to the IOL, then from the anterior chamber using the I/A handpiece. The lens implant was noted to center nicely within the capsular bag. The incisions were stromally hydrated, and the anterior chamber was reformed using BSS. Then 0.5cc of moxifloxacin 1.0mg/ml were injected into the capsular bag and anterior chamber. The incisions were checked with a Weck spear and found to be secure. Several drops of ophthalmic povidone-iodine 5% were then applied to the eye followed by two drops of combination steroid/NSAID/antibiotic solution. The drapes were removed and a clear plastic protective eye shield was placed over the eye. The patient was then returned to Same Day Surgery in stable condition. Date of Procedure: 03/30/25
--- NOTE | 2025-03-30 11:12 | W.ANESPOSTOP ---
Postoperative Evaluation Date, Time and Location Date Performed: 03/30/25 Time Performed: 11:12 Patient Location: Day Surgery Unit Vital Signs Most Recent Imported Vital Signs: Most Recent Vital Signs Temp Pulse Resp BP Pulse Ox 36.6 C 67 16 161/72 H 96 03/30/25 11:03 03/30/25 11:03 03/30/25 11:03 03/30/25 11:03 03/30/25 11:03 Pain Score Most Recent Pain Score: Most Recent Pain Score Pain Level 0 03/30/25 11:03 Assessment Mental Status: Awake (Alert & Oriented to Patient Baseline) Airway and Respiratory Function: Patent airway with normal (patient baseline) respiratory exam Cardiovascular Function: Hemodynamically Stable Hydration Status: Adequately Hydrated Nausea & Vomiting: No Nausea or Vomiting Pain: Pt. Denies Any Pain Peripheral Nerve Block: Patient did not receive a nerve block
== END 2025-03-30 11:21 | disposition home or self-care (01) ==
LOC: SUR 09:03
PROVIDERS: PCP Family Medicine; Visit Provider Ophthalmology
PROC: (CPT 66984; principal; 2025-03-30 10:45)
DX: H25.011 Cortical age-related cataract, right eye (principal); H25.11 Age-related nuclear cataract, right eye; Z98.42 Cataract extraction status, left eye; G47.30 Sleep apnea, unspecified
CPT/HCPCS: 66984; 00123; V2632; J2003

== ENCOUNTER → 2025-05-07 10:17 | Outpatient (BNVA) | payer MEDICARE, SELFPAY | PROVIDERS: PCP Family Medicine; Referring Provider Family Medicine; Visit Provider Podiatrist | DX: I83.90 Asymptomatic varicose veins of unspecified lower extremity (principal); L60.3 Nail dystrophy; R60.0 Localized edema; I73.89 Other specified peripheral vascular diseases; B35.1 Tinea unguium; G62.9 Polyneuropathy, unspecified; R09.89 Other specified symptoms and signs involving the circulatory and respiratory systems; L65.9 Nonscarring hair loss, unspecified; R20.8 Other disturbances of skin sensation; I83.93 Asymptomatic varicose veins of bilateral lower extremities; L60.2 Onychogryphosis; L60.8 Other nail disorders; R23.4 Changes in skin texture; R23.8 Other skin changes; B35.3 Tinea pedis | CPT/HCPCS: 11721 ==